=== PATIENT | female | born 1940 | race Caucasian/White ===

== ENCOUNTER 2016-05-18 16:10 | Observation (INO) | payer OTHER ==
--- NOTE | 2016-05-18 16:30 | EDPHY ---
H & P Time Seen by Provider: 05/18/16 16:19 HPI/ROS: HPI Speech disturbance. 75-year-old female by private vehicle with her . This patient reports sudden-onset expressive aphasia at 3:43 p.m.. No other complaint. ROS: Constitutional: No fever, no chills. No weakness. As above. Eyes: No discharge. No changes in vision. ENT: No sore throat. No nasal congestion or rhinorrhea. Respiratory: No cough. No shortness of breath. Cardiac: No chest pain, no palpitations. Gastrointestinal: No abdominal pain, no vomiting, no diarrhea. Genitourinary: No hematuria. No dysuria or increased frequency with urination. Musculoskeletal: No back pain. No neck pain. No myalgias or arthralgias. Skin: No rashes. Neurological: No headache. No focal weakness or altered sensation. As above. 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 Had angioplasty with stenting at that time. Currently on Plavix. Social history: Nonsmoker. Here with her . Her is a retired orthopedic surgeon. Physical Exam: General Appearance: Alert, no distress. This patient is responding to questions appropriately and in full sentences. This patient appears well- hydrated and well-nourished. Eyes: Pupils equal and round no pallor or injection. No lid edema, erythema or injection. Respiratory: There are no retractions, lungs are clear to auscultation with good air movement bilaterally. Cardiovascular: Regular rate and rhythm. No murmur. Gastrointestinal: Abdomen is soft and nontender, no masses, bowel sounds normal. No focal tenderness at McBurney's point. No Brown sign. Neurological: Motor sensory function is grossly intact. Cranial nerves are normal. Cerebellar function normal. Expressive aphasia noted. Intermittent garbled nonsensical speech. There does not appear to be a receptive aphasia Skin: Warm and dry, no rashes. Musculoskeletal: Neck is supple and nontender. Extremities are symmetrical. All joints range without pain or impingement. Psychiatric: No agitation. No depression. Database: EKG: EKG time is 4:37 p.m.; EKG shows a narrow complex normal sinus rhythm with a ventricular rate of 75. Possible right ventricular hypertrophy. Left anterior fascicular block. The MT, QRS, QT intervals are within normal limits. There are no ST-T wave changes indicative of ischemic or injury pattern. No evidence of right heart strain. Interpreted by me. Imaging: CT scan of head without contrast: No acute pathology. Results were discussed with staff radiologist. CT angiogram of head and neck: Negative. Results discussed with staff radiologist. Procedures: Emergency department course: 4:15 p.m., patient briefly evaluated in resuscitation [place] 2. IV placed. She was placed on a monitor. She was not sent for CT imaging at 4:20 p.m.. 4:20 p.m., spoke with John lopez neurologist Dr. Carr. Case discussed in detail with her. She will evaluate the patient remotely upon her return to resuscitation [place] 2. 4:26 p.m., patient has returned to room 2. Currently being evaluated by Dr. Carr. 4:50 p.m., spoke with spoke with Dr. Carr at [facility]. She has reassessing the patient and discussing treatment options currently. Patient's blood pressure is elevated at 203/150. Dr. Carr at this time does not want us to lower the blood pressure. She asked the patient be started on IV normal saline. This was done at a rate of 125 cc/hour. 5:05 p.m., spoke with Dr. Carr. Patient is improving. Patient and in decision making with Dr. Carr have elected not to have tPA therapy at this time. Dr. Carr recommended blood pressure control with nicardipine to systolic between 160 and 180. Plan is to send the patient for CT angio of the head neck as requested by Dr. Carr. Patient will then be admitted to the hospitalist service with our neurologist to consult. 5:15 p.m., discussed case with Dr. Julio Cesar Iraheta of the neurology service. He will consult. Patient currently down getting CT angiogram of the head and the neck. 5:30 p.m., spoke with Dr. Tavares, hospitalist, case discussed in detail. He accepts the patient for admission. 5:35 p.m., patient re-evaluated. Mild expressive aphasia. 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 Blood pressure currently is 187/82. Patient currently is not a tPA candidate. Will allow permissive hypertension. 5:45 p.m., patient re-evaluated. No change in neurologic status. Results of CT angiogram of head and neck discussed with her and her . Plan for admission to the hospitalist service with Dr. Iraheta of our neurology service to consult discussed with them. Need for MRI discussed. All of their questions were answered. Diffusion-weighted noncontrast MRI ordered. Patient admitted to the step-down unit under the care of Dr. Tavares in stable and improved condition. Differential Diagnosis: The differential diagnosis on this patient includes but is not limited to CVA, TIA, hypoglycemia. This represents a partial list of diagnoses considered. These considerations are based on history, physical exam, past history, reassessment and diagnostic testing. Smoking Status: Never smoked Constitutional: Initial Vital Signs Temperature (C) 36.4 C 05/18/16 16:15 Heart Rate 80 05/18/16 16:15 Respiratory Rate 17 05/18/16 16:15 Blood Pressure 200/113 H 05/18/16 16:15 O2 Sat (%) 93 05/18/16 16:15 O2 Delivery Mode Room Air Allergies/Adverse Reactions: No Known Allergies Allergy (Verified 05/18/16 16:15) Home Medications: Medication Instructions Recorded Acetaminophen [Tylenol Tablet] 1,000 mg PO DAILY PRN 04/28/14 Cholecalciferol Vit D3 [Vitamin D3 2,000 units PO HS 04/28/14 (OTC)] Clopidogrel Bisulfate [Plavix (RX)] 75 mg PO DAILY 04/28/14 Herbals/Supplements -Info Only 1 ea PO DAILY 04/28/14 Irbesartan [Avapro] 150 mg PO DAILY 04/28/14 Nebivolol HCl [Bystolic] 10 mg PO DAILY 04/28/14 Omeprazole Magnesium [Prilosec Otc] 20 mg PO DAILY 04/28/14 Aspirin EC [Aspirin EC 81 mg (*)] 81 mg PO DAILY 05/18/16 Rosuvastatin Calcium [Crestor 5mg] 5 mg PO HS 05/18/16 predniSONE 3 mg PO DAILY 05/18/16 Medical Decision Making Critical Care Time: I spent a total of 42 minutes of critical care time in obtaining history, performing a physical exam, bedside monitoring of interventions, collecting and interpreting tests and discussion with consultants but not including time spent performing procedures. - Data Points Laboratory Results: Laboratory Results 05/18/16 16:40 05/18/16 16:40 Medications Given: Discontinued Medications Aspirin (Aspirin) 324 mg PO EDNOW ONE Stop: 05/18/16 16:51 Last Admin: 05/18/16 17:39 Dose: 324 mg Sodium Chloride (Ns) 500 mls @ 500 mls/hr IV EDNOW ONE Stop: 05/18/16 17:49 Last Admin: 05/18/16 17:39 Dose: 500 mls Nicardipine/Sodium Chloride (Cardene 0.1 Mg/Ml (Premix)) 200 mls @ 0 mls/hr IV EDNOW ONE; Titrate PRN Reason: Protocol Stop: 05/18/16 17:08 Last Admin: 05/18/16 17:40 Dose: Not Given Departure - Departure Disposition: [facility] Acute Clinical Impression: Expressive aphasia, Acute CVA (cerebrovascular accident)
--- NOTE | 2016-05-18 16:39 | CPEKG ---
Heart Rate: 75 RR Interval: 800 P-R Interval: 188 QRSD Interval: 102 QT Interval: 404 QTC Interval: 452 P Cyclone: 41 QRS Cyclone: -57 T Wave Cyclone: 40 EKG Severity - ABNORMAL ECG - EKG Impression: SINUS RHYTHM EKG Impression: LEFT ANTERIOR FASCICULAR BLOCK EKG Impression: CONSIDER RVH OR POSTERIOR INFARCT Electronically Signed By: Taz Luu 19-May-2016 01:03:41
--- NOTE | 2016-05-18 16:48 | CT ---
CT Brain (Without Contrast) at 1627 hours History: .Difficulty speaking, stroke alert. Comparison: March 2014. Technique: Axial computed tomographic images of the brain without contrast. Dose reduction techniques were utilized. Findings: Basilar artery stent again noted. Old linear infarct in the right cerebellar hemisphere aga in noted. Ventricles, cisterns, and sulci are widened consistent with atrophy. No hydrocephalus, midl ine shift/herniation, or epidural/subdural hematomas. No acute intraparenchymal hemorrhage or mass ef fect. Cerebrovascular atherosclerosis. Hypodensities in the white matter of bilateral cerebral hemisp heres. Bone windows demonstrate no displaced fractures. Paranasal sinuses and mastoid air cells are clear. Impression: 1. Basilar artery stent again identified. 2. No acute hemorrhage, hydrocephalus, or mass effect. 3. Cerebrovascular atherosclerosis. 4. 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 No definite acute infarct. 5. Mild cerebral atrophy and mild microvascular ischemic gliosis. Findings and recommendations discussed with Emergency Department physician, Dr. Luu at 1635 h our, today. Final report concurs with initial preliminary interpretation.
[2016-05-18] MEDS ORDERED: NS 500 ML IV ONE (16:50)
[2016-05-18] MEDS ORDERED: ASPIRIN 81 MG CHEWABLE TAB PO ONE (16:50)
[2016-05-18] MEDS ORDERED: IOPAMIDOL (ISOVUE 370) 100 ML BTL IV ONE (17:05)
[2016-05-18 17:06] LABS: % IMMATURE GRANULYOCYTES 0.4 % (0.0-1.1); ABSOLUTE IMMATURE GRANULOCYTES 0.03 10^3/uL (0.00-0.10); ADD DIFF? NO; ADD MORPH? NO; ADD SCAN? NO; ATYPICAL LYMPHOCYTE FLAG 10 (0-99); FRAGMENT RBC FLAG 0 (0-99); HEMATOCRIT 38.8 % (38.0-47.0); LEFT SHIFT FLG 0 (0-99); LIPEMIA HEMOLYSIS FLAG 80 (0-99); MEAN CELL HEMOGLOBIN CONCENTR. 33.5 g/dL (32.4-36.7); MEAN CELL VOLUME 98.5 fL (81.5-99.8); PLATELET CLUMPS FLAG 0 (0-99); PLATELET COUNT 361 10^3/uL (150-400); RED BLOOD CELL COUNT 3.94 10^6/uL (4.18-5.33); RED CELL DISTRIBUTION WIDTH 13.1 % (11.5-15.2)
[2016-05-18] MEDS ORDERED: niCARdipine/NACL 200 ML IV ONE (17:07)
[2016-05-18 17:12] LABS: ANION GAP 10 mEq/L (8-16); CALCIUM 9.3 mg/dL (8.5-10.4); CARBON DIOXIDE 23 mEq/l (22-31); CHLORIDE 107 mEq/L (97-110); CREATININE 0.9 mg/dL (0.6-1.0); GLOMERULAR FILTRATION RATE > 60; GLUCOSE 109 mg/dL (70-100); POTASSIUM 4.2 mEq/L (3.5-5.2); SODIUM 140 mEq/L (134-144)
[2016-05-18 17:13] LABS: INR 1.04 (0.83-1.16); PROTIME(PATIENT) 13.5 SEC (12.0-15.0)
[2016-05-18 17:54] LABS: APTT 28.8 SEC (23.0-38.0)
--- NOTE | 2016-05-18 18:05 | CT ---
CT Angiogram of the Head and Neck 1724 hours History: Expressive aphasia developed today. History of basilar artery stent placement 10 years ago. History of breast cancer. Technique: Spiral imaging was obtained from the aortic arch through the skull during the administrati on of 85 Isovue-370 IV contrast. The images were reviewed in multiple planes. Volume rendering was pe rformed by me, as well. Dose reduction techniques were utilized. Findings: Comparison to previous CT angiogram study from April 20, 2006. CT Angiogram Neck: The aortic arch has a normal contour. There is moderate tortuosity of the great ve ssels off the aortic arch with minimal scattered plaque formation but no evidence of stenosis. The co mmon carotid artery has a normal contour bilaterally. There is no significant plaque at the right car otid bulb level with a small amount calcified plaque at the origin of the ECA and mild stenosis. Ther e is mild calcified plaque at the left distal CCA just below the carotid bulb that is circumferential without encroachment upon the lumen. There is moderate tortuosity of the mid right ICA and distal le ft ICA. The ECA and ICA are normal without additional plaque formation or stenosis. The vertebral art erial system within the neck is normal in appearance without stenosis, as well. The origin of the saniya tebral artery is also normal bilaterally. There is no evidence of aneurysm or dissection. Images through the neck demonstrate no significant lymphadenopathy. A few small subcentimeter lymph n odes are seen. The musculature is symmetric. The submandibular glands and parotid glands are normal i n appearance bilaterally. No significant degenerative disk disease is appreciated. CT Angiogram [place]: The distal ICA at the base of the brain has a normal appearance bilate rally without evidence of stenosis. A small amount of plaque is identified at the carotid siphon leve l. There is normal branching into the anterior and middle cerebral arteries. The anterior communicati ng artery is normal in appearance. There is no cutoff of flow or evidence of aneurysm. The distal right vertebral artery just proximal to the confluence with the left basilar artery demons trates moderate stenosis. However, there is a metallic stent has been placed in this position that ca n obscure some detail secondary to artifact. There are some scattered plaques involving the distal le ft vertebral artery without stenosis. There is a 4 leaf clover shaped structure in the distal basilar artery at the location of previous stenosis. The lumen cannot be confirmed on CT imaging. However, t here is contrast above and below this. There is a very small left posterior communicating artery iden tified. Therefore, there is probably patency of this focal 4 leaf clover-shaped stent. There is willie l branching into the posterior inferior cerebellar artery, as well as the superior cerebellar artery and posterior cerebral artery branches. Imaging through the brain demonstrates no evidence of intracranial hemorrhage, subdural collection, v ascular malformation, or evidence of cerebral infarction. Impression: 1. Mild scattered plaque formation involving the distal CCA and carotid bulb bilaterally without sten osis. 2. Tortuosity of the proximal vessels off the aortic arch as well as bilateral ICA. 3. Focal stent suspected distal left] vertebral artery as well as stent distal basilar artery. Allowi ng for the degree of contrast opacifying the system, these are probably patent. If definitive confirm ation is desired then consider catheter angiography as clinically directed. 4. No evidence for aneurysm. Note: All calculations were performed using NASCET criteria. These findings were discussed by telephone with Dr. Allen Luu at 1803 hrs.
--- NOTE | 2016-05-18 18:29 | DX ---
Chest, One View Portable at 1744 hours History: Acute neurological changes. Comparison: May 2015 Findings: Cardiac silhouette is mildly enlarged. Atherosclerotic tortuous aorta.. No pneumonia, linda estive heart failure, pleural effusion, or pneumothorax. Impression: 1. Mild cardiomegaly with atherosclerotic tortuous aorta. 2. No pneumonia or pulmonary edema. 3. Consider chest two views when the patient's medical condition permits.
--- NOTE | 2016-05-18 20:23 | MR ---
MRI of the Brain (Without Contrast) Clinical Indication: Expressive aphasia in a 75-year-old female with a history of previous stent plac ement and basilar artery and probably left vertebral.. Technique: T1-weighted images were acquired axially and sagittally from the foramen magnum to the ve rtex. Axial FLAIR, susceptibility-weighted, fast T2-weighted, and diffusion-weighted axial images we re obtained without contrast. Findings: No masses, areas of hemorrhage or extraaxial fluid collections are identified. There is m ild generalized atrophy seen, with prominence of the cortical sulci, as well as the ventricles. Midli ne structures are in normal positions. Areas of T2 hyperintensity are noted involving periventricular and subcortical white matter regions bilaterally presumably reflecting small vessel ischemic disease . Diffusion-weighted sequence demonstrates no acute infarct. A few peripheral areas of cerebellar cor tical loss are seen probably related to remote ischemia. The craniovertebral junction is normal. Cere bellar tonsils are in normal position. Pituitary gland is normal. The cerebellopontine angles are nor mal. Normal signal flow-void in the superior sagittal sinus, basilar artery, and bilateral internal carotid arteries indicating patency. Paranasal sinuses and mastoid air cells are clear. Impression: 1. Negative for acute cortical ischemia. 2. Atrophy and probable small vessel ischemic disease are noted. 3. Probable remote cerebellar cortical infarcts. A preliminary report was called to the emergency Department.
[2016-05-18] MEDS ORDERED: ONDANSETRON 4 MG/2 ML VIAL IVP PRN (20:48)
[2016-05-18] MEDS ORDERED: ONDANSETRON DISINTEGRATING 4 MG TAB PO PRN (20:48)
[2016-05-18] MEDS ORDERED: ACETAMINOPHEN 500 MG TAB PO PRN (20:52)
--- NOTE | 2016-05-18 20:58 | PDGENHP ---
History and Physical - Chief Complaint Acute expressive aphasia - History of Present Illness PCP: Dr. Barbosa Primary check writing machine operator Dr. Guzman HPI: 75-year-old female presenting with acute aphasic characterized as expressive, word-finding difficulty with onset of symptoms at 3:45 p.m. on the day of presentation. Duration was persistent thereafter and continued through her evaluation initially in the emergency department. She reports some associated headache located behind her right eye as well as some visual changes characterized as jagged and shapes in her right visual field. She denies any paresthesias or paresis. She reports that prior to her onset of symptoms, she had otherwise been feeling well and she was out walking with her . She does endorse that her life has been recently very stressful with the construction of a home which she and her are currently having built. She has otherwise been taking all of her home medications and has not recently made any medication adjustments. Her symptoms were alleviated by the passage of time in the emergency department and no intervention was required. The patient was seen by Neurology telemedicine and tPA was considered. The patient and her declined tPA and elected for further neurologic workup. The patient was recently evaluated in the outpatient setting by her check writing machine operator who performed a stress test and echo, both of which were reportedly normal. The patient denies any infectious symptoms. History Information - Allergies/Home Medication List Allergies/Adverse Reactions: No Known Allergies Allergy (Verified 05/18/16 16:15) Home Medications: Acetaminophen [Tylenol Tablet] 1,000 mg PO DAILY PRN 04/28/14 [Last Taken 10:00] Aspirin [Aspirin 81mg (OTC)] 81 mg PO DAILY 04/28/14 [Last Taken 05/05/14] Cholecalciferol Vit D3 [Vitamin D3 (OTC)] 2,000 units PO DAILY 04/28/14 [Last Taken 05/10/14] Clopidogrel Bisulfate [Plavix (RX)] 75 mg PO DAILY 04/28/14 [Last Taken 05/18/16 ] Herbals/Supplements -Info Only 1 ea PO DAILY 04/28/14 [Last Taken 05/11/14 10:00 ] Irbesartan [Avapro] 150 mg PO DAILY 04/28/14 [Last Taken 05/18/16] Nebivolol HCl [Bystolic] 10 mg PO DAILY 04/28/14 [Last Taken 05/18/16] Omeprazole Magnesium [Prilosec Otc] 20 mg PO DAILY 04/28/14 [Last Taken 05/18/16 ] Rosuvastatin Calcium [Crestor 10mg (RX)] 5 mg PO HS 04/28/14 [Last Taken 20:00] Aspirin EC [Aspirin EC 81 mg (*)] 81 mg PO DAILY 05/18/16 [Last Taken 05/18/16] predniSONE 3 mg PO DAILY 05/18/16 [Last Taken 05/18/16] I have personally reviewed and updated: family history, medical history, social history, surgical history - Past Medical History atrial fibrillation (Provoked postop, has not had persistent atrial fibrillation and has had a Holter monitor in past), coronary artery disease ( With stent to the LAD and PDA), hypertension, hyperlipidemia (Notably statin intolerant) Additional medical history: 80% Basilar artery stenosis requiring interventional stent at [facility], currently on dual anti-platelet therapy, occurred 10 years ago - Surgical History Additional surgical history: Bilateral knee surgery - Family History Additional family history: Mother with CVA x3 - Social History Smoking Status: Never smoked Alcohol Use: Occasionally Drug Use: None Additional social history: Ambulate without walker, able to complete ADLs Review of Systems ROS: 10pt was reviewed & negative except for what was stated in HPI & below EENMT: Reports: other (Visual changes) Neurological: Reports: headache, other (aphasia) Physical Exam Temp Pulse Resp BP Pulse Ox 36.8 C 66 16 179/87 H 93 05/18/16 18:50 05/18/16 18:50 05/18/16 18:50 05/18/16 18:50 05/18/16 18:50 Constitutional: no apparent distress, appears nourished, not in pain Eyes: PERRL, anicteric sclera, EOMI, other (Post cataract pupils) Ears, Nose, Mouth, Throat: moist mucous membranes, hearing normal, ears appear normal, no oral mucosal ulcers Cardiovascular: regular rate and rhythym, no murmur, rub, or gallop, other (No abdominal bruits), No carotid bruit, No edema Respiratory: no respiratory distress, no rales or rhonchi, clear to auscultation Gastrointestinal: normoactive bowel sounds, soft, non-tender abdomen, no palpable masses Musculoskeletal: full muscle strength, no muscle tenderness, normal joint ROM, no joint effusions Neurologic: AAOx3, sensation intact bilaterally, CN II-XII Intact, No weakness Psychiatric: interacting appropriately, not anxious, not encephalopathic, thought process linear Lab Data & Imaging Review 05/18/16 16:40 05/18/16 16:40 WBC 7.35 10^3/uL (3.80-9.50) 05/18/16 16:40 RBC 3.94 10^6/uL (4.18-5.33) L 05/18/16 16:40 Hgb 13.0 g/dL (12.6-16.3) 05/18/16 16:40 POC Hgb 13.3 gm/dL (12.3-15.9) 05/18/16 16:38 Hct 38.8 % (38.0-47.0) 05/18/16 16:40 POC Hct 39 % (35.5-47.5) 05/18/16 16:38 MCV 98.5 fL (81.5-99.8) 05/18/16 16:40 MCH 33.0 pg (27.9-34.1) 05/18/16 16:40 MCHC 33.5 g/dL (32.4-36.7) 05/18/16 16:40 RDW 13.1 % (11.5-15.2) 05/18/16 16:40 Plt Count 361 10^3/uL (150-400) 05/18/16 16:40 MPV 9.0 fL (8.7-11.7) 05/18/16 16:40 Neut % (Auto) 71.6 % (39.3-74.2) 05/18/16 16:40 Lymph % (Auto) 18.8 % (15.0-45.0) 05/18/16 16:40 [place] % (Auto) 8.2 % (4.5-13.0) 05/18/16 16:40 Eos % (Auto) 0.5 % (0.6-7.6) L 05/18/16 16:40 Baso % (Auto) 0.5 % (0.3-1.7) 05/18/16 16:40 Nucleat RBC Rel Count 0.0 % (0.0-0.2) 05/18/16 16:40 Absolute Neuts (auto) 5.26 10^3/uL (1.70-6.50) 05/18/16 16:40 Absolute Lymphs (auto) 1.38 10^3/uL (1.00-3.00) 05/18/16 16:40 Absolute Monos (auto) 0.60 10^3/uL (0.30-0.80) 05/18/16 16:40 Absolute Eos (auto) 0.04 10^3/uL (0.03-0.40) 05/18/16 16:40 Absolute Basos (auto) 0.04 10^3/uL (0.02-0.10) 05/18/16 16:40 Absolute Nucleated RBC 0.00 10^3/uL (0-0.01) 05/18/16 16:40 Immature Gran % 0.4 % (0.0-1.1) 05/18/16 16:40 Immature Gran # 0.03 10^3/uL (0.00-0.10) 05/18/16 16:40 PT 13.5 SEC (12.0-15.0) 05/18/16 16:40 INR 1.04 (0.83-1.16) 05/18/16 16:40 APTT 28.8 SEC (23.0-38.0) 05/18/16 16:40 POC Sodium 142 mEq/L (134-144) 05/18/16 16:38 Sodium 140 mEq/L (134-144) 05/18/16 16:40 POC Potassium 3.8 mEq/L (3.3-5.0) 05/18/16 16:38 Potassium 4.2 mEq/L (3.5-5.2) 05/18/16 16:40 POC Chloride 107 mEq/L (96-108) 05/18/16 16:38 Chloride 107 mEq/L (97-110) 05/18/16 16:40 Carbon Dioxide 23 mEq/l (22-31) 05/18/16 16:40 Anion Gap 10 mEq/L (8-16) 05/18/16 16:40 POC BUN 24 mg/dL (7-23) H 05/18/16 16:38 BUN 23 mg/dL (7-23) 05/18/16 16:40 Creatinine 0.9 mg/dL (0.6-1.0) 05/18/16 16:40 POC Creatinine 0.9 mg/dL (0.6-1.2) 05/18/16 16:38 Estimated GFR > 60 05/18/16 16:40 Glucose 109 mg/dL (70-100) H 05/18/16 16:40 POC Glucose 113 mg/dL (70-100) H 05/18/16 16:38 Calcium 9.3 mg/dL (8.5-10.4) 05/18/16 16:40 Visualized and Interpreted Chest x-ray results: Yes Chest X-Ray results: no infiltrate Visualized and Interpreted imaging results: Yes Interpretation: Left anterior fascicular block, normal sinus rhythm on EKG Assessment & Plan Assessment: 75-year-old female presents with acute expressive a aphasia most likely secondary to suspected TIA Plan: 1. Suspected TIA. Acute, new problem this provider, further workup indicated. Evidenced by transient neurologic symptoms including expressive aphasia headache and visual changes without any infarct noted on MRI. -suspect that this was small vessel occlusion vs. vasospasm in the L tempero- parietal area -CT angiogram of head and neck demonstrates no flow-limiting stenosis -get lipid panel and hemoglobin A1c -monitor on telemetry overnight -ABCD2 score of 4-5, conferring a 4% 2-day CVA risk, 10% 90-day CVA risk, warrants urgent evaluation under observation -order outside records including echocardiogram from [facility] -if no a tachyarrhythmia noted on telemetry overnight, would recommend implantable zio or Linq recorder through Dr. Guzman's office 2. Hypertension. Acute on chronic, most likely reactive hypertension in the setting of transient neurologic ischemia -low suspicion that this is hypertensive emergency given that patient's neurologic symptoms have completely resolved and her systolic blood pressure remains around 180 -up titrate patient's dosage of irbesartan to 150 mg twice daily, beginning now -continue patient's home dosage of nebivolol -hold on any IV antihypertensive at this time given risk of inducing ischemia by dropping patient's blood pressure too quickly 3. Coronary artery disease. Chronic, reviewed outside records including [address] Castañeda demonstrating patent LAD and PDA stents with 30% stenosis in the OM 1 and normal ejection fraction -reportedly normal stress test recently in the outpatient setting 4. Basilar artery stenosis. CT angiography demonstrating patency, her constellation of symptoms 10 years ago was much different with vertiginous symptoms as opposed to expressive aphasia once -continue aspirin Plavix and low-dose statin Diet. Cardiac Prophylaxis. High risk patient, pharmacologic contraindicated given TIA, placed on SCDs Code status. Full Disposition. Anticipated discharge is 05/19/2016, pending further workup and evaluation as outlined above. I have discussed with Dr. Luu, we both agree that patient warrants further investigation urgently given her high severity of illness and high risk of short-term CVA.
[2016-05-18] MEDS ORDERED: ROSUVASTATIN CALCIUM 10 MG TAB PO SCH (21:00)
[2016-05-18] MEDS: IRBESARTAN 150 MG TAB PO SCH ×2 (22:11→22:12)
[2016-05-18] MEDS ORDERED: CHOLECALCIFEROL VIT D3 1,000 UNITS TAB PO SCH (22:30)
[2016-05-18] MEDS ORDERED: NON-FORMULARY NEW DRUG (Rosuvastatin Calcium [Crestor 5mg] 5 MG) PO SCH (22:45)
[2016-05-19 06:34] LABS: ANION GAP 10 mEq/L (8-16); CALCIUM 9.3 mg/dL (8.5-10.4); CARBON DIOXIDE 19 mEq/l (22-31); CHLORIDE 113 mEq/L (97-110); CHOLESTEROL 297 mg/dL (140-220); CHOLESTEROL/HDL RATIO 5.12 RATIO (1.00-4.44); CREATININE 0.7 mg/dL (0.6-1.0); GLOMERULAR FILTRATION RATE > 60; GLUCOSE 89 mg/dL (70-100); HIGH DENSITY LIPOPROTEIN 58 mg/dL (40-85); LOW DENSITY LIPOPROTEIN 209 mg/dL (80-100); MAGNESIUM 1.9 mg/dL (1.6-2.3); NON-HIGH DENSITY LIPOPROTEIN 239 mg/dL (90-129); POTASSIUM 4.2 mEq/L (3.5-5.2); SODIUM 142 mEq/L (134-144); TRIGLYCERIDE 152 mg/dL (35-135); VERY LOW DENSITY LIPOPROTEINS 30 mg/dL (8-25)
[2016-05-19 06:44] LABS: TROPONIN I < 0.012 ng/mL (0-0.034)
[2016-05-19 07:58] VITALS: TEMP 98.7
[2016-05-19] MEDS ORDERED: NEBIVOLOL HCL 5 MG TAB PO SCH (09:00)
[2016-05-19] MEDS ORDERED: NON-FORMULARY NEW DRUG (Nebivolol Hcl [Bystolic] 10 MG) PO SCH (09:00)
[2016-05-19] MEDS ORDERED: NON-FORMULARY NEW DRUG (Omeprazole Magnesium [Prilosec Otc] 20 MG) PO SCH (09:00)
[2016-05-19] MEDS ORDERED: ASPIRIN EC 81 MG TAB PO SCH (09:00)
[2016-05-19] MEDS ORDERED: predniSONE 1 MG TAB PO SCH (09:00)
[2016-05-19] MEDS ORDERED: CLOPIDOGREL BISULFATE 75 MG TAB PO SCH (09:00)
[2016-05-19] MEDS ORDERED: PANTOPRAZOLE SODIUM 40 MG TAB PO SCH (09:00)
[2016-05-19] MEDS ORDERED: Herbals/Supplements -Info Only PO SCH (09:00)
[2016-05-19] MEDS: IRBESARTAN 150 MG TAB PO SCH (09:02)
[2016-05-19 09:25] LABS: % IMMATURE GRANULYOCYTES 0.5 % (0.0-1.1); ABSOLUTE IMMATURE GRANULOCYTES 0.03 10^3/uL (0.00-0.10); ADD DIFF? NO; ADD MORPH? NO; ADD SCAN? NO; ATYPICAL LYMPHOCYTE FLAG 30 (0-99); FRAGMENT RBC FLAG 0 (0-99); HEMATOCRIT 37.8 % (38.0-47.0); HEMOGLOBIN 12.9 g/dL (12.6-16.3); LEFT SHIFT FLG 0 (0-99); LIPEMIA HEMOLYSIS FLAG 90 (0-99); MEAN CELL HEMOGLOBIN 33.6 pg (27.9-34.1); MEAN CELL HEMOGLOBIN CONCENTR. 34.1 g/dL (32.4-36.7); MEAN CELL VOLUME 98.4 fL (81.5-99.8); MEAN PLATELET VOLUME 9.1 fL (8.7-11.7); PLATELET CLUMPS FLAG 0 (0-99); PLATELET COUNT 326 10^3/uL (150-400); RED BLOOD CELL COUNT 3.84 10^6/uL (4.18-5.33); RED CELL DISTRIBUTION WIDTH 13.2 % (11.5-15.2)
[2016-05-19 09:49] LABS: HEMOGLOBIN A1C 6.2 % (4.0-6.0)
--- NOTE | 2016-05-19 12:05 | HOSPPROG ---
[id number] stenosis on CTA -Recent TTE and stress at [facility]; awaiting records -already on Plavix, ASA. Appreciate Neurology input #HLD: statin #CAD: BB, ASA, statin #Accelerated HTN: SBP > 200 at admission. Improved on Avapro 150mg BID, BB #h/o basilar artery stenosis: stented at [facility] Disp: DC today. FU for varnish dipper Subjective: no issues overnight. Feels like herself Objective: Vital Signs Temp Pulse Resp BP Pulse Ox 37.1 C 66 18 198/83 H 96 05/19/16 07:52 05/19/16 07:52 05/19/16 07:52 05/19/16 07:52 05/19/16 07:52 Laboratory Results 05/19/16 09:05 05/19/16 05:50 05/18/16 05/19/16 05/20/16 05:59 05:59 05:59 Intake Total 500 Balance 500 PT 13.5 SEC (12.0-15.0) 05/18/16 16:40 INR 1.04 (0.83-1.16) 05/18/16 16:40 - Physical Exam Constitutional: no apparent distress, other (overweight) Eyes: PERRL Cardiovascular: regular rate and rhythym Respiratory: no respiratory distress Gastrointestinal: normoactive bowel sounds Genitourinary: no bladder fullness Skin: warm Musculoskeletal: full muscle strength Neurologic: AAOx3, CN II-XII Intact Psychiatric: interacting appropriately ICD10 Worksheet Patient Problems: Problems Problem Status Diagnosed Acute CVA (cerebrovascular accident) Acute Expressive aphasia Acute Osteoarthritis of knee Acute
[2016-05-19 13:29] VITALS: RESP 15
--- NOTE | 2016-05-19 14:23 | GDS ---
[f rep st] DISCHARGE SUMMARY DISCHARGE DIAGNOSES: 1. Expressive aphasia, suspected due to a migraine. 2. Hyperlipidemia. 3. Coronary artery disease. 4. Accelerated hypertension. 5. History of basilar artery stenosis. CONSULTATIONS: Neurology. HPI: Patient is a 75-year-old female with history of hyperlipidemia, basilar artery stenosis, who presented with acute expressive aphasia and word-finding difficulty, 3:45 p.m. date of presentation. These symptoms were persistent thereafter until her initial evaluation in the emergency room. She did report some associated headache located behind her right eye, as well as some visual changes that she describes as jagged-shaped in her right visual field. She denies any overt weakness or paresthesias. She does endorse that her life has been increasingly stressful with taking on building a new home. The patient was evaluated by Florencio Brennan. TPA was considered,but patient declined. HOSPITAL COURSE BY PROBLEM: 1. Expressive aphasia: initial concern for TIA versus stroke. Appreciate Neurology consultation. MRI was negative for acute cortical ischemia and no evidence of flow-limiting stenosis on CTA. Already on Plavix and aspirin. Would ideally up-titrate statin, but she declined. No evidence of arrhythmia on here. Has history of paroxysmal AFib in the past; follow up with her right of way agent for a ekg monitor. Follow up with Dr. Iraheta in 4 weeks. 3. Hyperlipidemia: Continue statin. 4. History of basilar artery stenosis, status post stenting at [facility]. 5. Coronary artery disease: Last cardiac catheterization was in January 2014 with patent LAD and PDA stents with 30% stenosis in the OM1. She reported normal stress test and echo in his clinic recently. Awaiting these records. Continue beta-kesha, aspirin, and statin. DISPOSITION: Patient is stable for discharge. MEDICATIONS: No new medications. FOLLOWUP: 1. Dr. Iraheta in [address] Castañeda for ekg monitor. /[id number]/MODL MTDD
[2016-05-19 15:25] VITALS: BP 169/69; PULSE 62; O2SAT 96
--- NOTE | 2016-05-19 20:54 | GCON ---
[f rep st] CONSULTATION INPATIENT CONSULTATION. DATE OF CONSULTATION: 05/19/2016 CHIEF COMPLAINT: Expressive aphasia. HISTORY OF PRESENT ILLNESS: Dr. Jr Tavares of the hospitalist service consulted Neurology for evaluation of the patient's aphasia. Results of evaluation placed in the EMR for his review. This is a 75-year-old female who has a prior history of basilar stenosis requiring a stent placement at [facility] in [place] in 2005. The patient did well until May 18, 2016 when at approximately 3:45 p.m. she had sudden onset of difficulty speaking. She new what she wanted to say, but could not form words. She also had pain behind her right eye and bright lights moving shapes in her vision consistent with a migrainous aura. Symptoms lasted for approximately 1 hour with then complete recovery, no problems since. She had a brain MRI that showed no acute ischemia. She currently is normal, has no problems. CT angiogram of the head and neck showed no acute vessel dissection or occlusion or thrombus. She reported having an echocardiogram with cardiology within the last month that was normal as well. Blood pressure has been slightly elevated but has improved recently. MEDICATIONS: At home: Aspirin 81 mg, Plavix 75 mg daily since stent placement , vitamin D, Avapro, Bystolic, omeprazole, Crestor 10 mg, prednisone 3 mg. PAST MEDICAL HISTORY: Postoperative provoked atrial fibrillation, none since. Coronary artery disease, hypertension, hyperlipidemia, prior basilar artery stenosis treated with interventional stent at [facility] in 2005. Bilateral knee surgery. FAMILY HISTORY: Stroke. SOCIAL HISTORY: Never smoked. REVIEW OF SYSTEMS: A 10-point review of systems is negative, except what was placed in HPI. PHYSICAL EXAM: VITAL SIGNS: Blood pressure is 198/83, heart rate 66, normal sinus rhythm, respirations 14, saturating 96% on room air, temperature 37.1 degrees Celsius. GENERAL: No acute distress. EYES: Funduscopic exam could not visualize optic discs. LUNGS: Clear to auscultation bilaterally. No rhonchi or rales. HEART: Regular rate and rhythm. No murmurs. No carotid bruits auscultated. NEUROLOGIC: Mental status: Alert, oriented to person, place, and date. Memory, attention, language and fund of knowledge all appear intact. Cranial nerves: Pupils equal, round, reactive to light. Visual olivia full to confrontation. Extraocular muscles intact. Bilateral face intact sensation and motor movement. Hearing intact to conversation. Uvula raises symmetrically. Tongue protrudes midline. Trapezius 5/5 strength. Motor exam: Normal tone, bulk, and strength in all 4 extremities. Sensory exam : All 4 extremities intact to light touch. Reflexes bilateral brachioradialis 2/4. Coordination: Bilateral pdtton-ie-takh, cawg-yq-lieo, rapid alternating movements are normal. Gait deferred. NIH stroke scale of 0. LABS: May 18, 2015, CBC, chemistry and coagulation panels unremarkable. May 19, 2015: HbA1c 6.2, LDL 209. Radiology on May 18, 2016: Head and neck CT angiogram shows the previously placed left vertebral and basilar artery stent, otherwise no abnormalities. May 18, 2016: A brain MRI without contrast shows no acute changes. There is some atrophy, chronic microvascular disease, and an old right remote cerebellar infarct. I personally visualized the study. In April 2016, there is a report the patient had an outpatient transthoracic echocardiogram that was normal, per patient. ASSESSMENT: 1. One hour of expressive aphasia, right retro-orbital pain, and visual aura: Given the patient had 1 hour of symptoms with complete resolution of symptoms following that, and brain MRI shows no ischemia, I suspect it is most likely that she had a complex migraine. I would suspect if she actually had expressive aphasia from ischemia for over 1 hour that there would be some sign of infarction on the brain MRI. Transient ischemic attack is also possible but less likely, in my opinion. However, it is still reasonable to provide full stroke reduction guidelines given her known previous right cerebellar stroke seen on brain MRI, which is not acute. 2. Prior basilar stenosis treated with stent in 2005. 3. 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 4. Hypertension. 5. Hyperlipidemia. 6. Postoperative provoked atrial fibrillation, none since. RECOMMENDATIONS: 1. Continue aspirin 81 mg daily and Plavix 75 mg daily for stroke prevention and given the fact that she has a basilar artery sent. 2. LDL goal less than 70, currently at 209. The patient declined increasing her Crestor. She says she is statin intolerant. I have recommended that she begin red rice yeast supplement and follow up with outpatient primary care provider to discuss alternative ways to bring her cholesterol down. This is likely her primary stroke risk factor. 3. HbA1c goal less than 7.0, currently 6.2. 4. Blood pressure goal less than 140/90. 5. Complete 24 hour telemetry, which will occur at 4:15 today, and if no atrial fibrillation seen, okay to discharge, assuming blood pressure is in good control. 6. Outpatient followup in Neurology Clinic in 4 weeks. 7. Outpatient followup with her gelatin dynamite packing operator, Dr. Guzman at [facility] or to consider long-term telemetry monitor technician looking for any paroxysmal atrial fibrillation. No further neurologic workup needed. Neurology will sign off. The patient will call me for any problems as I have given her my business card. /[id number]/MODL MTDD
== END 2016-05-19 16:45 | disposition home or self-care (01) ==
LOC: INTOOBSV 17:40 → F2N 21:11
PROVIDERS: ADMIT Internal Medicine; ATTEND Internal Medicine
DX: R47.01 Aphasia (principal); R51 Headache; H53.8 Other visual disturbances; I44.7 Left bundle-branch block, unspecified; E78.5 Hyperlipidemia, unspecified; I25.10 Atherosclerotic heart disease of native coronary artery without angina pectoris; I10 Essential (primary) hypertension; Z79.02 Long term (current) use of antithrombotics/antiplatelets; Z86.59 Personal history of other mental and behavioral disorders; Z86.79 Personal history of other diseases of the circulatory system; Z86.73 Personal history of transient ischemic attack (TIA), and cerebral infarction without residual deficits; Z95.5 Presence of coronary angioplasty implant and graft; Z82.3 Family history of stroke
CPT/HCPCS: 70450; 70496; 70498; 70551; 71010; 93005; 96360; 99291; G0378; Q9967; 82947-QW

== ENCOUNTER → 2016-10-12 | Outpatient (CLI) | payer OTHER | LOC: BMCIMAGING 09:17 | PROVIDERS: ATTEND Internal Medicine | DX: Z12.31 Encounter for screening mammogram for malignant neoplasm of breast (principal); Z85.3 Personal history of malignant neoplasm of breast; Z90.12 Acquired absence of left breast and nipple | CPT/HCPCS: G0202-52 ==

== ENCOUNTER → 2016-10-27 | Outpatient (CLI) | payer OTHER | LOC: FIMAGING 15:41 | PROVIDERS: ATTEND Podiatrist | DX: R60.0 Localized edema (principal); M79.604 Pain in right leg ==

== ENCOUNTER → 2016-11-21 | Outpatient (CLI) | payer OTHER | LOC: BMCIMAGING 16:30 | PROVIDERS: ATTEND Internal Medicine | DX: I50.9 Heart failure, unspecified (principal); I11.0 Hypertensive heart disease with heart failure; J44.9 Chronic obstructive pulmonary disease, unspecified ==

== ENCOUNTER 2017-02-18 22:34 | Emergency (ER) | payer OTHER ==
--- NOTE | 2017-02-18 22:59 | EDPHY ---
H & P Stated Complaint: elevated BP at home, pressure behind R eye greater than 24hours Source: Patient Exam Limitations: No limitations - Personal History Current Tetanus/Diphtheria Vaccine: Unsure Tetanus Vaccine Date: unknown - Medical/Surgical History Hx Asthma: No Hx Chronic Respiratory Disease: No Hx Diabetes: No Hx Cardiac Disease: Yes Hx Renal Disease: No Hx Cirrhosis: No Hx Alcoholism: No Hx HIV/AIDS: No Hx Splenectomy or Spleen Trauma: No Other PMH: PSHx: Stents 2008, Basilar artery stent 2006, RT TKA , L Breast CA 2000, R rotator cuff rep. , lap zaina. PMHx: CAD, HTN - Social History Smoking Status: Never smoked Time Seen by Provider: 02/18/17 22:58 HPI/ROS: HPI: This is a 76-year-old female who presents Chief Complaint: elevated BP at home, pressure behind R eye greater than 24hours Location: Right eye Quality: Feels funny Duration: Since yesterday Signs and Symptoms: No weakness, no radiation, + mild dull aching headache, no speech changes, no paresthesias, + right vision is not as sharp as her left Timing: Sudden, waxes and wanes Severity: Moderate Context: Patient has a history of coronary artery disease status post 2 stents , basilar artery stenosis, accelerated hypertension, coronary artery disease and episode of expressive aphasia in May of 2016 with negative workup and suspected to be due to him ocular migraine. Patient already on aspirin and Plavix as well as statin. Patient had cataract surgery several years ago bilaterally. She denies any floaters/neck stiffness. She reports that yesterday evening she noticed some redness in her right conjunctiva; applied some eye drops and went to bed. She woke up and felt some pressure behind her right eye; took her blood pressure and systolic was 170. She then took her Bystolic and Losartan. She waited a few hours and rechecked her blood pressure and systolic was in 130s. This evening while she was watching the [employer] football game, she noted that the pressure behind her eye remained and was constant now and accompanied by decreased visual clarity and her right eye. Patient is at her baseline per . Modifying Factors: Regular medications Comment: ROS: see HPI Constitutional: No fever, no chills, no weight loss Eyes: No blurred vision Respiratory: No shortness of breath, no cough Cardiovascular: No chest pain Gastrointestinal: No nausea, no vomiting, no diarrhea Genitourinary: No dysuria Extremities: No myalgias Neurologic: No weakness, no numbness Skin: No rashes Hematologic: No bruising, no bleeding MEDICAL/SURGICAL/SOCIAL HISTORY: PSHx: Stents 2008, Basilar artery stent 2006, RT TKA ', L Breast CA 2000, R rotator cuff rep. , lap zaina. 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 Tympanic membranes clear. Oropharynx clear, no exudate and moist pink mucosa. Airway patent. No lymphadenopathy. No meningismus. Cardiovascular: Normal S1/S2, regular rate, regular rhythm, without murmur rub or gallop. PULMONARY/CHEST: Symmetrical and nontender. Clear to auscultation bilaterally. Good air movement. No accessory muscle usage. ABDOMEN: Soft, nondistended, nontender, no rebound, no guarding, no peritoneal signs, no masses or organomegaly. No CVAT. EXTREMITIES: 2/2 pulses, strength 5/5, no deformities, no clubbing, no cyanosis or edema. NEUROLOGICAL: no focal neuro deficits. GCS 15. Cranial nerves 2-12 grossly intact. SKIN: Warm and dry, no erythema. no rash. Good capillary refill. (Roma Holcomb) Constitutional: Initial Vital Signs Temperature (C) 36.9 C 02/18/17 22:47 Heart Rate 76 02/18/17 22:47 Respiratory Rate 14 02/18/17 22:47 Blood Pressure 209/88 H 02/18/17 22:47 O2 Sat (%) 97 02/18/17 22:47 O2 Delivery Mode Room Air Allergies/Adverse Reactions: No Known Allergies Allergy (Verified 05/18/16 16:15) Home Medications: Medication Instructions Recorded Acetaminophen [Tylenol ES 500 mg 1,000 mg PO DAILY PRN 04/28/14 (*)] Cholecalciferol Vit D3 [Vitamin D3 2,000 units PO HS 04/28/14 (*)] Clopidogrel Bisulfate [Plavix (*)] 75 mg PO DAILY 04/28/14 Herbals/Supplements -Info Only 1 ea PO DAILY 04/28/14 Nebivolol HCl [Bystolic] 10 mg PO DAILY 04/28/14 Omeprazole Magnesium [Prilosec Otc] 20 mg PO DAILY 04/28/14 Aspirin EC [Aspirin EC 81 mg (*)] 81 mg PO DAILY 05/18/16 Rosuvastatin Calcium [Crestor 5mg] 5 mg PO HS 05/18/16 predniSONE 3 mg PO DAILY 05/18/16 Irbesartan [Avapro 150 mg (*)] 150 mg PO BID #60 tab 05/19/16 Medical Decision Making Procedures: 12 lead EKG: Indication: Hypertension Rhythm: Normal sinus rhythm, rate of 69 beats per minute [place]: Normal Intervals: Normal QRS: Normal ST segments: Normal INTERPRETATION: No acute ischemic changes, PACs noted The 12 lead EKG was interpreted by myself and with attending. (Roma Holcomb) ED Course/Re-evaluation: PHYSICIAN DOCUMENTATION: The patient was evaluated and managed by the Physician Missile Pad Mechanic. My co- signature indicates that I have reviewed this chart and I agree with the findings and plan of care as documented. I am the secondary supervising physician. (Tati Irvin) Head CT scan, CTA head, CTA neck, labs, EKG, urinalysis ordered GCS 15; no focal deficits. Vital signs noted upon arrival; blood pressure 209/88 0005: Called by radiologist and advise Head CT scan shows no acute intracranial process Labs reviewed and grossly unremarkable Urinalysis shows no signs of infection 0100: Called by radiologist regarding CTA which is negative for clot or stenosis and the stents are patent. ABCD2 score= 4; moderate risk 0130: Discuss all imaging, lab, urinalysis results with patient and . Patient no longer has right eye pressure/headache/vision changes. Patient is already on aspirin and Plavix for coronary artery disease. Patient believe that this is similar to prior ocular migraine and wished to be discharged home with follow-up with Dr. Iraheta. They understand the risk of a TIA and stroke. Discussed patient with attending. Patient did request for a prepack of Ativan this evening which I deem is reasonable. BP 150-160s/90s throughout ER visit without any blood pressure medications given. (Roma Holcomb) Differential Diagnosis: Headache including but not limited to subarachnoid hemorrhage, migraine headache , tension headache and infectious causes such as meningitis, pharyngitis and sinusitis. (Roma Holcomb) - Data Points Laboratory Results: Laboratory Results 02/18/17 23:45 02/18/17 23:45 Medications Given: Discontinued Medications Lorazepam (Ativan Injection) 1 mg IVP EDNOW ONE Stop: 02/18/17 23:14 Last Admin: 02/19/17 00:13 Dose: 1 mg Lorazepam (Ativan 1 Mg Prepack#4) 1 btl TAKEHOME EDNOW ONE Stop: 02/19/17 01:37 MST Last Admin: 02/19/17 01:31 MST Dose: Not Given Departure - Departure Disposition: Home, Routine, Self-Care Clinical Impression: Ocular migraine Condition: Good Instructions: Transient Ischemic Attack (ED), Ocular Migraine (ED) Additional Instructions: Please continue to take all medications as prescribed. Monitor blood pressure daily. Please call Dr. Iraheta's office on Monday for a follow-up appointment in the next 2-3 days. If at any time you have worsening symptoms, weakness, difficulty speaking, or pain that is not controlled with eshq-keq-okafaqw medications; please return to the emergency room immediately. Referrals: Arabella Barbosa MD [Primary Care Provider] - As per Instructions Julio Cesar Iraheta DO [Medical Doctor] - As per Instructions
[2017-02-18] MEDS ORDERED: LORazepam 2 MG/ML INJ IVP ONE (23:13)
--- NOTE | 2017-02-18 23:41 | CPEKG ---
Heart Rate: 69 RR Interval: 870 P-R Interval: 188 QRSD Interval: 104 QT Interval: 408 QTC Interval: 437 P [place]: 49 QRS [place]: -62 T Wave [place]: 41 EKG Severity - ABNORMAL ECG - EKG Impression: SINUS RHYTHM EKG Impression: ATRIAL PREMATURE COMPLEX EKG Impression: LEFT ANTERIOR FASCICULAR BLOCK EKG Impression: CONSIDER RIGHT VENTRICULAR HYPERTROPHY Electronically Signed By: Tati Irvin 19-Feb-2017 07:59:52
--- NOTE | 2017-02-18 23:41 | CPEKG ---
Heart Rate: 69 RR Interval: 870 P-R Interval: 188 QRSD Interval: 104 QT Interval: 408 QTC Interval: 437 P [place]: 49 QRS [place]: -62 T Wave [place]: 41 EKG Severity - ABNORMAL ECG - EKG Impression: SINUS RHYTHM EKG Impression: ATRIAL PREMATURE COMPLEX EKG Impression: LEFT ANTERIOR FASCICULAR BLOCK EKG Impression: CONSIDER RIGHT VENTRICULAR HYPERTROPHY Electronically Signed By: Tati Irvin 19-Feb-2017 07:59:52
[2017-02-19 00:07] LABS: PLATELET COUNT 335 10^3/uL (150-400)
[2017-02-19] MEDS ORDERED: IOPAMIDOL (ISOVUE 370) 100 ML BTL IV ONE (00:11)
[2017-02-19 01:17] VITALS: RESP 18
[2017-02-19 01:18] VITALS: BP 163/70; PULSE 65; TEMP 97.7; O2SAT 94
[2017-02-19] MEDS ORDERED: LORAZEPAM 1 MG PREPACK#4 BTL TAKEHOME ONE (01:36)
== END 2017-02-19 01:55 | disposition home or self-care (01) ==
DX: G43.819 Other migraine, intractable, without status migrainosus (principal); I10 Essential (primary) hypertension; I25.10 Atherosclerotic heart disease of native coronary artery without angina pectoris; Z79.82 Long term (current) use of aspirin; Z85.3 Personal history of malignant neoplasm of breast
CPT/HCPCS: 70450; 70496; 70498; 93005; 96374; 99285; J2060; Q9967

== ENCOUNTER → 2017-04-05 | Outpatient (CLI) | payer OTHER | LOC: BMCIMAGING 11:45 | PROVIDERS: ATTEND Physician Assistant | DX: M25.561 Pain in right knee (principal); Z96.651 Presence of right artificial knee joint ==

== ENCOUNTER → 2017-05-18 | Outpatient (CLI) | payer OTHER, MEDICARE | LOC: BMCIMAGING 14:23 | PROVIDERS: ATTEND Internal Medicine | DX: R60.0 Localized edema (principal) ==

== ENCOUNTER → 2017-10-16 | Outpatient (CLI) | payer OTHER, MEDICARE | LOC: BMCIMAGING 12:25 | PROVIDERS: ATTEND Internal Medicine | DX: Z12.31 Encounter for screening mammogram for malignant neoplasm of breast (principal); Z85.3 Personal history of malignant neoplasm of breast ==

== ENCOUNTER 2017-10-22 06:28 | Emergency (ER) | payer OTHER, MEDICARE ==
[2017-10-22] MEDS ORDERED: HYDROGEN PEROXIDE 236 ML BOTTLE TP ONE (06:41)
--- NOTE | 2017-10-22 06:57 | EDPHY ---
H & P Stated Complaint: mechanical fall, head LAC Time Seen by Provider: 10/22/17 06:50 HPI/ROS: Chief Complaint: Fall, head injury HPI: A 77-year-old woman got up to go to the bathroom this morning. Patient states she tripped over room feet, struck the back of her head on her bedside dresser. She did not have a loss of consciousness. She does sustained a large laceration. She is currently taking Plavix for a basilar artery stent. No headache. No nausea or vomiting. No vision or hearing changes. No numbness or weakness. No chest injury. No extremity injury. No abdominal pain. ROS: 10 point Review of Systems is negative except as noted in the HPI. Social History: No smoking, no alcohol, no recreational drug use Family History: non-contributory Physical Exam: Gen: Awake, Alert, Airway Intact HEENT: Head: 3 cm posterior no parietal laceration, no active bleeding Eyes: PERRLA, EOMI Nose: No epistaxis Mouth: Normal dentition, Airway patent Face: No deformity Neck: non-tender, no stepoff, Full ROM without pain Chest: non-tender, lungs CTA Heart: normal heart tones Abd: soft, non-tender, atraumatic Pelvis: non-tender, stable to AP and Lateral compression Back: atraumatic, no midline tenderness Ext: Mild left lateral hip pain, no discomfort, full range of motion of bilateral hips knees and ankles without pain Skin: no rash Neuro: CN II-XII intact, Strength 5/5 in all extremities, sensation intact in all extremities - Personal History Tetanus Vaccine Date: unknown - Medical/Surgical History Hx Asthma: No Hx Chronic Respiratory Disease: No Hx Diabetes: No Hx Cardiac Disease: Yes Hx Renal Disease: No Hx Cirrhosis: No Hx Alcoholism: No Hx HIV/AIDS: No Hx Splenectomy or Spleen Trauma: No Other PMH: PSHx: Stents 2008, Basilar artery stent 2006, RT TKA ', L Breast CA 2000, R rotator cuff rep. ', lap zaina. PMHx: CAD, HTN - Social History Smoking Status: Never smoked Constitutional: Initial Vital Signs Temperature (C) 36.5 C 10/22/17 06:32 Heart Rate 67 10/22/17 06:32 Respiratory Rate 20 10/22/17 06:32 Blood Pressure 157/76 H 07/08/18 06:32 O2 Sat (%) 99 10/22/17 06:32 O2 Delivery Mode Room Air Allergies/Adverse Reactions: No Known Allergies Allergy (Verified 10/22/17 06:32) Home Medications: Medication Instructions Recorded Acetaminophen [Tylenol ES 500 mg 1,000 mg PO DAILY PRN 04/28/14 (*)] Cholecalciferol Vit D3 [Vitamin D3 2,000 units PO HS 04/28/14 (*)] Clopidogrel Bisulfate [Plavix (*)] 75 mg PO DAILY 04/28/14 Herbals/Supplements -Info Only 1 ea PO DAILY 04/28/14 Nebivolol HCl [Bystolic] 10 mg PO DAILY 04/28/14 Omeprazole Magnesium [Prilosec Otc] 20 mg PO DAILY 04/28/14 Aspirin EC [Aspirin EC 81 mg (*)] 81 mg PO DAILY 05/18/16 Rosuvastatin Calcium [Crestor 5mg] 5 mg PO HS 05/18/16 predniSONE 3 mg PO DAILY 05/18/16 Irbesartan [Avapro 150 mg (*)] 150 mg PO BID #60 tab 05/19/16 Medical Decision Making - Diagnostics Imaging Results: CT scan of the head is negative for acute injury per Dr. Barth. Hip x-rays negative for acute fracture per my interpretation. Imaging: Discussed imaging studies w/ freight caller Radiologist Procedures: Procedure: Laceration repair. Verbal consent was obtained from the patient. The 3 cm laceration on the scalp was anesthetized in the usual fashion. The wound was irrigated, draped and explored to its base with a gloved finger. There were no deep structures involved. No tendon injury was identified. The wound was repaired with 6 lynette. The wound repair was uncomplicated. The procedure was performed by myself. ED Course/Re-evaluation: 77-year-old woman status post fall. CT head is negative. Lacerations been repaired. Hip x-ray is negative. Will discharge with follow-up with primary care physician. Appropriate return precautions have been provided. Departure - Departure Disposition: Home, Routine, Self-Care Clinical Impression: Laceration of head, Fall, Contusion, hip Condition: Good Instructions: Laceration (ED), Contusion in Adults (ED), Staple Care (ED) Additional Instructions: Lynette need to be removed in 10 days. Follow up with primary care physician in 2-4 days for further evaluation. Return to the emergency department for increasing headache, nausea, vomiting, confusion, fevers, or any other concerns. Referrals: Arabella Barbosa MD [Primary Care Provider] - As per Instructions
[2017-10-22 08:14] VITALS: BP 128/63
== END 2017-10-22 08:12 | disposition home or self-care (01) ==
PROC: 0HQ0XZZ Repair Scalp Skin, External Approach (ICD-10-PCS; principal; 2017-10-22)
DX: S01.01XA Laceration without foreign body of scalp, initial encounter (principal); S70.02XA Contusion of left hip, initial encounter; I10 Essential (primary) hypertension; I25.10 Atherosclerotic heart disease of native coronary artery without angina pectoris; Z85.3 Personal history of malignant neoplasm of breast; Z95.5 Presence of coronary angioplasty implant and graft; Z79.82 Long term (current) use of aspirin; W01.198A Fall on same level from slipping, tripping and stumbling with subsequent striking against other object, initial encounter; Y92.89 Other specified places as the place of occurrence of the external cause; Y99.8 Other external cause status; Y93.89 Activity, other specified

== ENCOUNTER → 2018-01-11 | Outpatient (CLI) | payer OTHER, MEDICARE | LOC: BHFA 15:30 | PROVIDERS: ATTEND Internal Medicine Interventional Cardiology | DX: I35.0 Nonrheumatic aortic (valve) stenosis (principal) ==

== ENCOUNTER → 2018-05-09 | Outpatient (CLI) | payer OTHER, MEDICARE | LOC: FIMAGING 07:51 | PROVIDERS: ATTEND Radiology Diagnostic Radiology | DX: I83.12 Varicose veins of left lower extremity with inflammation (principal); I83.11 Varicose veins of right lower extremity with inflammation ==

== ENCOUNTER 2018-06-18 07:26 | Day surgery (SDC) | payer OTHER, MEDICARE ==
[2018-06-18] MEDS ORDERED: NALOXONE HCL 0.4 MG/ML INJ IVP PRN (07:36)
[2018-06-18] MEDS ORDERED: FLUMAZENIL 0.5 MG/5 ML MDV IVP PRN (07:36)
[2018-06-18] MEDS ORDERED: fentaNYL 100 MCG/2 ML INJ IVP PRN (07:36)
[2018-06-18] MEDS ORDERED: NS 1,000 ML IV ONE (07:36)
[2018-06-18] MEDS ORDERED: MIDAZOLAM 2 MG/2 ML VIAL IVP PRN (07:36)
[2018-06-18] MEDS ORDERED: ONDANSETRON 4 MG/2 ML VIAL IVP ONE (07:36)
[2018-06-18] MEDS ORDERED: SODIUM TETRADECYL SULFATE 3% 2 ML VIAL IV ONE (07:46)
[2018-06-18] MEDS ORDERED: NA BICARBONATE 50 MEQ/50 ML VIAL ONE (07:46)
[2018-06-18] MEDS ORDERED: LIDO/EPI 1% **for epidural** 30 ML SDV ONE (07:47)
--- NOTE | 2018-06-18 08:31 | PDPROPOC ---
Sedation Plan of Care Sedation Plan of Care: vital signs stable, mental status noted, patient educated of risks, benefits, alternatives, patient can tolerate sedation ASA Classification: ASA 3 Planned drugs: fentanyl, midazolam Mallampati Score: Class 2 Mallampati Reference Image: Patient passed 3-3-2 rule?: Yes
--- NOTE | 2018-06-18 08:36 | PDGENHP ---
History & Physical Chief Complaint: bilateral leg swelling History of Present Illness: leg swelling, dermatitis. Pertinent Past, Social, Family History: stents x 2, basal arery stent, tka, lap zaina. hardware removal. Relevant Physical Exam: bilateral leg swelling. Cardiorespiratory Assessment: rrr, cta
[2018-06-18] MEDS ORDERED: MIDAZOLAM 2 MG/2 ML VIAL ONE (08:43)
[2018-06-18] MEDS ORDERED: fentaNYL 100 MCG/2 ML INJ ONE (08:43)
[2018-06-18] MEDS ORDERED: FLUMAZENIL 0.5 MG/5 ML MDV IVP ONE (08:44)
[2018-06-18] MEDS ORDERED: NALOXONE HCL 0.4 MG/ML INJ ONE (08:44)
[2018-06-18] MEDS ORDERED: ACETAMINOPHEN 325 MG TAB PO PRN (11:09)
[2018-06-18] MEDS ORDERED: ONDANSETRON 4 MG/2 ML VIAL IVP PRN (11:09)
--- NOTE | 2018-06-18 11:15 | PDRADPN ---
Radiology Procedure Note Date of Procedure: 06/18/18 Radiologist: Debbi Warren Anesthesia: IV Sedation Pre-op Diagnosis: RLE VARICOSE VEINS Post-op Diagnosis: SAME Indication: SWELLING Procedure: LASER ABLATION, SCLEROTHERAPY Inf/Abcess present in the surg proc area at time of surgery?: No
[2018-06-18 12:46] VITALS: BP 118/65
== END 2018-06-18 11:45 | disposition home or self-care, planned readmission (81) ==
LOC: FIMAGING 07:26
PROVIDERS: ATTEND Radiology Diagnostic Radiology
DX: I83.891 Varicose veins of right lower extremity with other complications (principal); Z95.5 Presence of coronary angioplasty implant and graft; Z96.652 Presence of left artificial knee joint
CPT/HCPCS: 36471; 36478; 37799; 76937; 99152; 99153; C1769; C1892; J2250; J2310; J3010

== ENCOUNTER 2018-06-25 07:28 | Day surgery (SDC) | payer OTHER, MEDICARE ==
[2018-06-25] MEDS ORDERED: fentaNYL 100 MCG/2 ML INJ IVP PRN (07:38)
[2018-06-25] MEDS ORDERED: ONDANSETRON 4 MG/2 ML VIAL IVP ONE (07:38)
[2018-06-25] MEDS ORDERED: MEPERIDINE 25 MG/ML SYR IVP PRN (07:38)
[2018-06-25] MEDS ORDERED: MIDAZOLAM 2 MG/2 ML VIAL IVP PRN (07:38)
[2018-06-25] MEDS ORDERED: FLUMAZENIL 0.5 MG/5 ML MDV IVP PRN (07:38)
[2018-06-25] MEDS ORDERED: ceFAZolin 2 GM/DEXTROSE 100 ML IV ONE (07:38)
[2018-06-25] MEDS ORDERED: NS 1,000 ML IV ONE (07:38)
[2018-06-25] MEDS ORDERED: NALOXONE HCL 0.4 MG/ML INJ IVP PRN (07:38)
[2018-06-25] MEDS ORDERED: SODIUM TETRADECYL SULFATE 3% 2 ML VIAL IV ONE (07:40)
[2018-06-25] MEDS ORDERED: NA BICARBONATE 50 MEQ/50 ML VIAL ONE (07:40)
[2018-06-25] MEDS ORDERED: LIDO/EPI 1% **for epidural** 30 ML SDV ONE (07:40)
[2018-06-25] MEDS ORDERED: LIDOCAINE 1% 300 MG/30 ML SDV ONE (07:42)
--- NOTE | 2018-06-25 08:38 | PDGENHP ---
History & Physical Chief Complaint: bilteral varicose veins History of Present Illness: s/p RT leg treatment; here for LT leg treatment Pertinent Past, Social, Family History: non smoker. Relevant Physical Exam: RT leg swelling improved. mild amount of trapped blood. LT veins mapped out. Cardiorespiratory Assessment: rrr, cta
--- NOTE | 2018-06-25 08:38 | PDPROPOC ---
Sedation Plan of Care Sedation Plan of Care: vital signs stable, mental status noted, patient educated of risks, benefits, alternatives, patient can tolerate sedation ASA Classification: ASA 2 Planned drugs: fentanyl, midazolam Mallampati Score: Class 2 Mallampati Reference Image: Patient passed 3-3-2 rule?: Yes
[2018-06-25] MEDS ORDERED: ATROPINE SULFATE 1 MG/10 ML SYR ONE (09:32)
[2018-06-25] MEDS ORDERED: NS 1,000 ML IV SCH (10:30)
[2018-06-25] MEDS ORDERED: ONDANSETRON 4 MG/2 ML VIAL IVP PRN (10:30)
[2018-06-25] MEDS ORDERED: HYDROCODONE/APAP 5/325 TAB PO PRN (10:30)
[2018-06-25] MEDS ORDERED: ONDANSETRON DISINTEGRATING 4 MG TAB PO PRN (10:30)
[2018-06-25] MEDS ORDERED: FLUMAZENIL 0.5 MG/5 ML MDV IVP ONE (10:31)
[2018-06-25] MEDS ORDERED: fentaNYL 100 MCG/2 ML INJ ONE (10:31)
[2018-06-25] MEDS ORDERED: NALOXONE HCL 0.4 MG/ML INJ ONE (10:31)
[2018-06-25] MEDS ORDERED: MIDAZOLAM 2 MG/2 ML VIAL ONE (10:32)
[2018-06-25 13:53] VITALS: BP 97/53
== END 2018-06-25 13:37 | disposition home or self-care (01) ==
LOC: FIMAGING 07:28
PROVIDERS: ATTEND Radiology Diagnostic Radiology
DX: I83.12 Varicose veins of left lower extremity with inflammation (principal)
CPT/HCPCS: J0461; J0690; J2250; J2310; J2405; J3010

== ENCOUNTER → 2018-07-05 | Outpatient (CLI) | payer OTHER, MEDICARE | LOC: FIMAGING 16:09 | PROVIDERS: ATTEND Radiology Diagnostic Radiology | DX: I83.93 Asymptomatic varicose veins of bilateral lower extremities (principal) ==

== ENCOUNTER → 2018-08-13 | Outpatient (CLI) | payer OTHER, MEDICARE | LOC: FIMAGING 15:47 ==

== ENCOUNTER → 2018-08-21 | Outpatient (CLI) | payer OTHER, MEDICARE ==
[~2018-08-21] MED LIST: IOPAMIDOL (ISOVUE-370) 150 ML BTL IV ONE
== END ==
LOC: FIMAGING 09:48
PROVIDERS: ATTEND Radiology Diagnostic Radiology
DX: I83.893 Varicose veins of bilateral lower extremities with other complications (principal); R60.0 Localized edema
CPT/HCPCS: 75635; Q9967; 82565-PO

== ENCOUNTER → 2018-09-13 | Outpatient (CLI) | payer OTHER, MEDICARE | LOC: BMCIMAGING 13:44 ==